=== PATIENT | male | born 1955 | race Caucasian/White ===

== ENCOUNTER 2017-04-01 12:31 | Emergency (ER) | payer OTHER ==
[~2017-04-01] VITALS: Ht 188 cm; Wt 102.3 kg
[2017-04-01 12:38] VITALS: BP 132/76; PULSE 73; RESP 20; O2SAT 97
--- NOTE | 2017-04-01 12:55 | ED.REPORT ---
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 The bottom of the ladder slipped and kicked out to the left side. He landed hard on grassy ground on his left side. C/o pain in his left hip. Pt can stand but when he tries to walk, his left leg gives out. He denies LOC, hitting head, or blood thinners. Pt used crutches to walk into triage. Nursing Notes Stated Complaint: FELL OF LADDER,9 FOOT FALL Chief Complaint: Multiple Trauma/Fall Nursing Notes Reviewed: Yes Allergies: Coded Allergies: No Known Allergies (Unverified , 04/01/17) General Time Seen by MD: 12:53 Chief Complaint Fall Hx Obtained From: Patient Arrived By: Ambulance Onset Occurred: Just prior to arrival Symptom Duration: Since onset Caused by: Accidental, Fall from height... (6-10 feet) Context: Occurred at: Home injury Location: Hip left Quality: Painful Severity: Current: Moderate Recent Healthcare: No recent doctor visit, No recent hospitalization Similar Sx Previous: No Past Medical History Past Medical History denies Past Surgical History denies Smoking History Unknown if Ever Smoker Social History Other Social History: Good social support, , Local resident Ambulatory Status Independent Review of Systems Musculoskeletal: Reports: Joint pain (left hip pain) Neurologic: Reports: Numbness, Problem walking, Denies: Change LOC, Dizziness, Headache, Lightheaded, Shaking, Syncope, Weakness Complete sys rev & neg: except as marked. Physical Exam Initial Vital Signs Vital Signs (First) Date Time Temp Pulse Resp B/P Pulse Ox O2 Delivery O2 Flow Rate FiO2 04/01/17 12:38 36.6 73 20 132/76 97 Room Air Initial VS: Reviewed General/Constitutional: Awake, Alert, Cooperative, Not toxic appearing Neck: Atraumatic, Supple, No midline vertebral tend Head / Eyes: Atraumatic, Normocephalic ENT: Atraumatic, Mucous membranes moist Back: Atraumatic, Inspection NL, No midline vertebral tend no midline spine tenderness Wrist / Hand: Atraumatic, Inspection NL, Full range of motion, No deformity Left Hip: Positive: ROM reduced..., Tenderness present... tenderness to left greater trochanter Ankle / Foot: Atraumatic, Inspection NL, No deformity Skin: Atraumatic, Color NL, No rash Neurologic: Oriented X3, Speech NL Interpretation & Diagnostics X-Ray Interpretation Xray Interpretation: LEFT HIP X-RAY IMPRESSION: Question of nondisplaced left sacral alar fracture. Dictated by: Stevo Paul M.D. on 04/01/2017 at 14:11 Approved by: Stevo Paul M.D. on 04/01/2017 at 14:14 X-Ray Ordered: Hip left Interpretation / Wet Read by: Interpret - Radiologist CT Abd / Pelvis Interpretation IMPRESSION: Nondisplaced fracture of the left S1 and S2 sacral ala. No anterior pelvic ring fracture is seen. No other fractures seen the CT of the pelvis without contrast. Bilateral small fatty inguinal hernias. Dictated by: Stevo Paul M.D. on 04/01/2017 at 15:22 Approved by: Stevo Paul M.D. on 04/01/2017 at 15:26 Study type: Abdominal CT no contrast Interpretation / Wet Read by: Interpret - Radiologist Re-Eval/Medical Decision Re-Evaluation/Progress #1: Time of Eval: 14:19 Re-Evaluation/Progress Note: Pt rechecked. Informed pt of x-ray results and plan for CT scan. Re-Evaluation/Progress #2: Time of Eval: 15:25 Re-Evaluation/Progress Note: Pt request more pain medication. Counseled Regarding: Diagnosis, Lab results, Need for follow-up, When/why to return to ED Discharge & Departure Impression: Primary Impression: Sacral fracture, closed Encounter type: initial encounter Fracture morphology: unspecified fracture morphology Qualified Code: S32.10XA - Unspecified fracture of sacrum, initial encounter for closed fracture Additional Impression: Fall from ladder Encounter type: initial encounter Qualified Code: W11.XXXA - Fall on and from ladder, initial encounter Disposition: Home Discharge Condition All VS Reviewed: Yes Condition: Stable Patient Instructions: Sacral Fracture (ED) Additional Instructions: Thank you for entrusting us with your care today. Your x-ray shows a sacral S1- S2 fracture. Fortunately, this is a closed fracture and will just be a matter of pain management. You will not need surgery or stabilization. Use your crutches and if needed, you can invest in a walker for further mobility assistance. I am sending you home with pain medication. Do not drink alcohol, do drugs, drive cars, or operate heavy machinery while taking narcotics. Follow up in the next week with your primary care physician for further care. Return to the Emergency Department if you experience any new or worsening symptoms. I hope you feel better soon and don't have any more falls! Referrals: Jason Em MD (PCP) Scribe Attestation Portion of this note were transcribed by Na Manuel. I, Dr. Muir, personally performed the history, physical exam, and medical decision-making: I reviewed and confirmed the accuracy for the information in the transcribed note. Signed by: patrick Tavarez, 04/01/17 1600 copies to: Jason Em MD, Kirk H MD Apr 01, 2017 12:55 Na Manuel Apr 01, 2017 13:12
--- NOTE | 2017-04-01 14:16 | DRSVH ---
PROCEDURE: X-RAY PELVIS W/LAT HIP (LT) ([id number]) INDICATIONS: trauma TECHNIQUE: AP pelvis with lateral view(s) of the left hip(s). COMPARISON: None. FINDINGS: Bones: Irregularity of the arcuate lines of S12 and 3 on the left suggesting a sacral alar fracture. No anterior pelvic ring fracture is seen. No abnormality is seen in either hip joint. Pelvic ring kevin ears intact. No suspicious bony lesions. Soft tissues: The visualized bowel gas pattern is normal. No suspicious soft tissue calcifications. IMPRESSION: Question of nondisplaced left sacral alar fracture. Dictated by: Stevo Paul M.D. on 04/01/2017 at 14:11 Approved by: Stevo Paul M.D. on 04/01/2017 at 14:14
[2017-04-01 14:59] VITALS: BP 125/80; PULSE 78; O2SAT 100
--- NOTE | 2017-04-01 15:28 | DRSVH ---
PROCEDURE: CT PELVIS WITHOUT CONTRAST ([id number]) INDICATIONS: trauma TECHNIQUE: Noncontrast 3 mm axial sections acquired through the bony pelvis, with coronal and sagittal reformatt ing. COMPARISON: None. FINDINGS: Image quality: Excellent. Bones: No fracture of the left hip or right hip is seen. Anterior aspect of the pelvic ring is intact . There is nondisplaced fracture of the left sacral ala S1-S2. Soft tissues: Bilateral small fatty inguinal hernias are present. IMPRESSION: Nondisplaced fracture of the left S1 and S2 sacral ala. No anterior pelvic ring fracture is seen. No other fractures seen the CT of the pelvis without contrast. Bilateral small fatty inguinal hernias. Dictated by: Stevo Paul M.D. on 04/01/2017 at 15:22 Approved by: Stevo Paul M.D. on 04/01/2017 at 15:26
--- NOTE | 2017-04-01 16:05 | DRSVH ---
PROCEDURE: X-RAY LEFT RIBS, TWO VIEWS ([id number]) INDICATIONS: trauma TECHNIQUE: 2 views of the left ribs were acquired. COMPARISON: None. FINDINGS: Surgical changes and devices: None. Bones and chest wall: No fractures or dislocations. No suspicious bony lesions. Overlying soft tis sues appear unremarkable. Lungs and pleura: The visualized lung appears clear. No pleural effusions or pneumothorax are visib le. IMPRESSION: No rib fractures identified in the left chest. Left lung is clear. No pneumothorax. Dictated by: Stevo Paul M.D. on 04/01/2017 at 16:01 this report corresponds to the emergency [facility] physicians ER dictated note. Approved by: Stevo Paul M.D. on 04/01/2017 at 16:02
[2017-04-01 16:43] VITALS: BP 128/80; PULSE 85; RESP 20; O2SAT 97
== END 2017-04-01 16:44 | disposition home or self-care (01) ==
LOC: SED 12:31
DX: S32.10XA Unspecified fracture of sacrum, initial encounter for closed fracture (principal); W11.XXXA Fall on and from ladder, initial encounter; Y93.89 Activity, other specified; Y99.8 Other external cause status; Y92.017 Garden or yard in single-family (private) house as the place of occurrence of the external cause